=== PATIENT | male | born 1995 | race Caucasian/White ===

== ENCOUNTER 2016-04-14 12:59 | Emergency (ER) | payer OTHER ==
[~2016-04-14] VITALS: Ht 182.9 cm; Wt 129.0 kg
[2016-04-14 13:16] VITALS: Ht 182.9 cm; Wt 129.0 kg
[2016-04-14] MEDS ORDERED: LIDOCAINE 1%/EPI (MDV) 20 ML INJ INJ STA (15:47)
[2016-04-14] MEDS ORDERED: ACETAMINOPHEN 650MG/20.3ML CUP PO STA (15:47)
[2016-04-14] MEDS ORDERED: HYDR-906 PO (16:07)
[2016-04-14] MEDS ORDERED: IBUP-1542 PO (16:07)
--- NOTE | 2016-04-14 16:12 | ERD ---
ER Documentation Chief Complaint Date/Time DATE: 04/14/16 TIME: 16:09 Chief Complaint LEFT LOWER THIGH LACERATION FROM A QUARTER TRIMMER ABOUT 30 MIN [employer]. DRSG APPLIED HPI Patient presents with a left thigh laceration ROS All systems reviewed and are negative except as per history of present illness. Medications Home Meds Active Scripts Hydrocodone/Acetaminophen ([place] 5-325 Tablet) 1 Each Tablet, 1 TAB PO Q6H Y for PAIN, #7 TAB Prov:KRISTI SANDOVAL MD 04/14/16 Ibuprofen* (Motrin*) 600 Mg Tab, 600 MG PO Q6, #20 TAB Prov:KRISTI SANDOVAL MD 04/14/16 Allergies Allergies: Coded Allergies: No Known Allergy (Unverified , 10/24/12) PMhx/Soc History of Surgery: No Anesthesia Reaction: No Hx Neurological Disorder: No Hx Respiratory Disorders: No Hx Cardiac Disorders: No Hx Psychiatric Problems: No Hx Miscellaneous Medical Probl: No Hx Alcohol Use: No Hx Substance Use: No Hx Tobacco Use: No Smoking Status: Never smoker Physical Exam Vitals Vital Signs Date Time Temp Pulse Resp B/P Pulse Ox O2 Delivery O2 Flow Rate FiO2 04/14/16 13:16 97.2 85 21 164/84 98 Physical Exam Const: [] Head: Atraumatic Eyes: Normal Conjunctiva ENT: Normal External Ears, Nose and Mouth. Neck: Full range of motion..~ No meningismus. Resp: Clear to auscultation bilaterally Cardio: Regular rate and rhythm, no murmurs Abd: Soft, non tender, non distended. Normal bowel sounds Skin: No petechiae or rashes. 5 cm left medial thigh laceration. No restricted range of motion weakness or tendon deficits. Back: No midline or flank tenderness Ext: No cyanosis, or edema Neur: Awake and alert Psych: Normal Mood and Affect Results 24 hrs Current Medications Medications (Trade) Dose Ordered Sig/Ronda Route PRN Reason Start Time Stop Time Status Last Admin Dose Admin Lidocaine/ Epinephrine (Xylocaine 1%/ Epi (Mdv) 20 ml) 20 ml ONCE STAT INJ 04/14/16 15:47 04/14/16 15:48 DC Acetaminophen (Tylenol Liquid) 650 mg ONCE STAT PO 04/14/16 15:47 04/14/16 15:48 DC 04/14/16 15:56 Procedures/MDM 18. Subjective complaints-patient cut left medial thigh with a lens shaper grinder today at work. 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 Tetanus is up-to-date 19. Objective findings-afebrile vital signs stable. There is a 5 cm laceration which is through the epidermis and dermis with on the left medial thigh. There is no involvement of tendons and no restricted range of motion, weakness or active bleeding or erythema. 19 B. X-ray and laboratory results-none 20. Diagnosis-left thigh laceration 5 cm 21. Findings and diagnosis consistent with patient's account of injury and onset?-Yes 22. Conditions that will impede or delay the patient's recovery? No 23. Treatment rendered-procedure note-patient was given Tylenol for pain. Wound was copiously irrigated with normal saline. 8 cc of lidocaine was used for local infiltration. A 3-0 nylon sutures were used to reapproximate the wound and the patient tolerated procedure well and the wound was dressed. Further treatment required-2 day wound check in 10 day suture removal 24. Patient hospitalized?-No 25. Work status- Able to perform usual work-no Patient can return on-April 15, 2016 Restrictions-limited walking, stooping and bending and desk duty only for 1 week. Patient was discharged home with a short course of [place] and ibuprofen for pain and instructions to follow-up with occupational medicine clinic of employer. He should recheck in 2 days or sooner for fevers, redness, new or worsening symptoms. Departure Diagnosis: Primary Impression: Laceration Condition: Stable Patient Instructions: Laceration, All Additional Instructions: See human resources for follow-up at occupational medicine clinic. Recommend wound check in 2 days and suture removal approximately 10 days. KRISTI SANDOVAL MD Apr 14, 2016 16:12
[2016-04-14 16:26] VITALS: BP 141/77; PULSE 80; RESP 18; TEMP 98.1
== END 2016-04-14 16:25 | disposition home or self-care (01) ==
LOC: FTE 12:59
DX: S71.112A Laceration without foreign body, left thigh, initial encounter (principal); W29.0XXA Contact with powered kitchen appliance, initial encounter; Y92.9 Unspecified place or not applicable
CPT/HCPCS: 12002; Z7502; Z7610